=== PATIENT | female | born 1990 | race Caucasian/White ===

== ENCOUNTER → 2016-05-16 | Outpatient (CLI) | payer OTHER | END | disposition home or self-care (01) | LOC: RAD 10:11 → EDSTATUS 10:30 | PROVIDERS: ATTEND Nurse Practitioner Family | DX: M85.2 Hyperostosis of skull (principal); R22.0 Localized swelling, mass and lump, head; R51 Headache | CPT/HCPCS: 70450 ==

== ENCOUNTER → 2016-05-25 | Outpatient (CLI) | payer OTHER ==
[2016-05-27 12:06] LABS: HEPATITIS C PCR QUANTITATION HCV Not Detected IU/mL (.)
== END | disposition home or self-care (01) ==
LOC: LAB 14:29
PROVIDERS: ATTEND Internal Medicine Hematology & Oncology
DX: Z77.21 Contact with and (suspected) exposure to potentially hazardous body fluids (principal)
CPT/HCPCS: 36415; 84460; 86803; 87522

== ENCOUNTER → 2017-01-09 | Outpatient (CLI) | payer OTHER | END | disposition home or self-care (01) | LOC: LAB 11:37 | PROVIDERS: ATTEND Internal Medicine Hematology & Oncology | DX: Z11.59 Encounter for screening for other viral diseases (principal) | CPT/HCPCS: 36415; 84460; 86803; 87522 ==